=== PATIENT | female | born 1945 | race Caucasian/White ===

== ENCOUNTER → 2020-06-27 16:20 | Outpatient (CLI) | payer MEDICARE, OTHER, SELFPAY ==
[2020-06-27 14:30] VITALS: BMI 55.6
== END ==
PROVIDERS: PCP Internal Medicine; Referring Provider Obstetrics & Gynecology; Visit Provider Obstetrics & Gynecology
DX: N32.81 Overactive bladder (principal); N39.0 Urinary tract infection, site not specified
CPT/HCPCS: 87077; 87086; 87088; 87186

== ENCOUNTER → 2020-07-08 12:37 | Outpatient (CLI) | payer MEDICARE, OTHER, SELFPAY ==
[2020-06-27 14:30] VITALS: BMI 55.6
--- NOTE | 2020-07-08 12:41 | US_ITS ---
STUDY: RENAL ULTRASOUND - COMPLETE REASON FOR EXAM: Female, 75 years old. UTI recurrence. TECHNIQUE: Ultrasound evaluation of the kidneys was performed with real-time and static kumar-scale imaging. COMPARISON: None. FINDINGS: RIGHT KIDNEY: Normal location of the right kidney, which is normal in size. The right kidney measures 10.8 cm x 6.5 cm x 5.4 cm. There is a normal cortex of the right kidney. The renal cortex measures 1.4 cm. There is a 2.9 cm x 2.4 cm x 2.9 cm cyst in the lower pole of the kidney There are no right renal calculi. There is no right hydronephrosis. DISTAL RIGHT URETER: There is non-visualization of the distal right ureter. There is no demonstrated right ureterovesical junction calculus. There is no demonstrated right ureteral jet. LEFT KIDNEY: Normal location of the left kidney, which is normal in size. The left kidney measures 10 cm x 4.9 cm x 7 cm. There is a normal cortex of the left kidney. The renal cortex measures 1.6 cm. There is no left renal mass or cyst. There are no left renal calculi. There is no left hydronephrosis. DISTAL LEFT URETER: There is non-visualization of the distal left ureter. There is no demonstrated left ureterovesical junction calculus. There is no demonstrated left ureteral jet. BLADDER: The distended urinary bladder has a volume of 181 ml. There is a normal wall thickness of the distended urinary bladder. There is no demonstrated mass within the urinary bladder. There are no demonstrated bladder calculi. US/Kidney and Bladder IMPRESSION: 2.9 cm x 2.4 cm x 2.9 cm cyst in the lower pole of the right kidney. Electronically Signed: Oren Alexis MD at 14:17 EDT , Service support ,
== END ==
PROVIDERS: PCP Internal Medicine; Referring Provider Urology; Visit Provider Urology
DX: N39.0 Urinary tract infection, site not specified (principal)
CPT/HCPCS: 76770